=== PATIENT | male | born 1965 | race Caucasian/White ===

== ENCOUNTER 2022-08-28 10:44 | Inpatient (IN) | payer OTHER ==
[2022-08-28] MEDS ORDERED: DICYCLOMINE HCL 10 MG CAPSULE PO PRN (11:53)
[2022-08-28] MEDS ORDERED: BENZOCAINE/MENTHOL (CHLORASEPTIC ) LOZENGE MM PRN (11:53)
[2022-08-28] MEDS ORDERED: IBUPROFEN 400 MG TABLET (FP) PO PRN (11:53)
[2022-08-28] MEDS ORDERED: LORazepam 1 MG TABLET PO PRN (11:53)
[2022-08-28] MEDS ORDERED: LOPERAMIDE HCL 2 MG CAPSULE PO PRN (11:53)
[2022-08-28] MEDS ORDERED: NICOTINE 10 MG CARTRIDGE (INHALER) IH PRN (11:53)
[2022-08-28] MEDS ORDERED: MAG HYDROX/AL HYDROX/SIMETH 30 ML UNIT-DOSE CUP PO PRN (11:53)
[2022-08-28] MEDS ORDERED: ACETAMINOPHEN 325 MG TABLET (FP) PO PRN ×2 (11:53)
[2022-08-28] MEDS ORDERED: NALOXONE HCL (KLOXXADO) 8 MG SPRAY NS PRN (11:53)
[2022-08-28] MEDS ORDERED: BISMUTH SUBSALICYLATE 524 MG/30 ML PO PRN (11:53)
[2022-08-28] MEDS ORDERED: MAGNESIUM HYDROX 2400MG/30ML ORAL SUSPENSION 30 ML CUP PO PRN (11:53)
[2022-08-28] MEDS ORDERED: ONDANSETRON *ODT* 4 MG TABLET SL PRN (11:53)
[2022-08-28] MEDS ORDERED: MAGNESIUM CITRATE 300 ML BOTTLE PO PRN (11:53)
[2022-08-28] MEDS ORDERED: LORazepam 2 MG TABLET PO ONE (12:00)
[2022-08-28] MEDS ORDERED: NICOTINE 14 MG/24 HOURS TOPICAL PATCH TD SCH (12:00)
[2022-08-28] MEDS ORDERED: LORazepam 2 MG TABLET ONE (12:18)
[2022-08-28] MEDS ORDERED: NICOTINE 14 MG/24 HOURS TOPICAL PATCH TD ONE (12:18)
[2022-08-28] MEDS: NICOTINE 14 MG/24 HOURS TOPICAL PATCH TD SCH (12:22)
[2022-08-28] MEDS: hydrOXYzine PAMOATE 25 MG CAPSULE (FP) PO PRN (12:32)
[2022-08-28] MEDS: PRENATAL VITAMINS W/ FOLIC ACID TABLET (FP) PO SCH (12:32)
[2022-08-28] MEDS: METHOCARBAMOL 500 MG TABLET PO PRN (12:33)
[2022-08-28 15:40] LABS: HEMATOCRIT 43.2 % (35.4-49); HEMOGLOBIN 14.3 GM/dL (11.7-16.9); MCH 28.8 pg (25.7-33.7); MCHC 33.1 g/dl (32.0-35.9); MEAN PLT VOLUME 8.5 fl (7.5-11.1); PLATELET COUNT 164 10^3/uL (134-434); RBC 4.97 M/mm3 (4.00-5.60); RDW 13.4 % (11.9-15.9); WHITE BLOOD COUNT 4.5 K/mm3 (4.0-10.0)
[2022-08-28 16:07] LABS: CALCIUM 9.3 mg/dL (8.5-10.1)
[2022-08-28 16:08] LABS: ALBUMIN 3.6 g/dl (3.4-5.0); BLOOD UREA NITROGEN 27.1 mg/dL (7-18)
[2022-08-28 16:10] LABS: CREATININE 1.3 mg/dL (0.55-1.3)
[2022-08-28 16:12] LABS: BILIRUBIN,TOTAL 0.3 mg/dL (0.2-1); TOT PROT 6.8 g/dl (6.4-8.2)
[2022-08-28] MEDS: LORazepam 2 MG TABLET PO SCH ×2 (17:55→22:20)
[2022-08-28] MEDS ORDERED: MELATONIN 5 MG TABLETS PO SCH (22:00)
[2022-08-28] MEDS: THIAMINE HCL 100 MG TABLET (FP) PO SCH (22:20)
[2022-08-28] MEDS: IBUPROFEN 600 MG TABLET (FP) PO PRN (22:22)
[2022-08-29] MEDS: LORazepam 2 MG TABLET PO SCH ×4 (05:36→22:07)
[2022-08-29] MEDS ORDERED: ALBUTEROL SO4 HFA INHALER IH PRN (06:41)
[2022-08-29] MEDS ORDERED: methaDONE HCL 40 MG DISPERSABLE TABLET PO SCH (10:00)
[2022-08-29] MEDS: PRENATAL VITAMINS W/ FOLIC ACID TABLET (FP) PO SCH (10:08)
[2022-08-29] MEDS: NICOTINE 14 MG/24 HOURS TOPICAL PATCH TD SCH (10:10)
[2022-08-29] MEDS ORDERED: MELATONIN 5 MG TABLETS PO SCH (22:00)
[2022-08-29] MEDS: OLANZapine 5 MG TABLET PO SCH (22:06)
[2022-08-29] MEDS: THIAMINE HCL 100 MG TABLET (FP) PO SCH (22:06)
[2022-08-30] MEDS: LORazepam 1 MG TABLET PO SCH ×4 (06:05→22:23)
[2022-08-30] MEDS: methaDONE HCL 40 MG DISPERSABLE TABLET PO SCH ×2 (08:30→10:43)
[2022-08-30] MEDS: PRENATAL VITAMINS W/ FOLIC ACID TABLET (FP) PO SCH (10:18)
[2022-08-30] MEDS: NICOTINE 14 MG/24 HOURS TOPICAL PATCH TD SCH (10:18)
[2022-08-30] MEDS: IBUPROFEN 600 MG TABLET (FP) PO PRN (10:21)
[2022-08-30] MEDS: hydrOXYzine PAMOATE 25 MG CAPSULE (FP) PO PRN (17:44)
[2022-08-30] MEDS: THIAMINE HCL 100 MG TABLET (FP) PO SCH (22:22)
[2022-08-30] MEDS: OLANZapine 5 MG TABLET PO SCH (22:22)
[2022-08-30] MEDS: MELATONIN 5 MG TABLETS PO PRN (22:22)
[2022-08-31] MEDS ORDERED: LORazepam 0.5 MG TABLET PO PRN
[2022-08-31] MEDS: METHOCARBAMOL 500 MG TABLET PO PRN ×2 (05:24→10:44)
[2022-08-31] MEDS: hydrOXYzine PAMOATE 25 MG CAPSULE (FP) PO PRN (05:24)
[2022-08-31] MEDS: LORazepam 0.5 MG TABLET PO SCH ×4 (05:25→22:50)
[2022-08-31] MEDS: methaDONE HCL 40 MG DISPERSABLE TABLET PO SCH (07:35)
[2022-08-31] MEDS: NICOTINE 14 MG/24 HOURS TOPICAL PATCH TD SCH (10:11)
[2022-08-31] MEDS: PRENATAL VITAMINS W/ FOLIC ACID TABLET (FP) PO SCH (10:11)
[2022-08-31] MEDS: IBUPROFEN 600 MG TABLET (FP) PO PRN (17:59)
[2022-08-31] MEDS: OLANZapine 5 MG TABLET PO SCH (22:49)
[2022-08-31] MEDS: THIAMINE HCL 100 MG TABLET (FP) PO SCH (22:49)
[2022-08-31] MEDS: MELATONIN 5 MG TABLETS PO PRN (22:51)
[2022-09-01] MEDS ORDERED: LORazepam 0.5 MG TABLET PO ONE (05:00)
[2022-09-01] MEDS: methaDONE HCL 40 MG DISPERSABLE TABLET PO SCH (05:55)
[2022-09-01] MEDS: IBUPROFEN 600 MG TABLET (FP) PO PRN (06:27)
[2022-09-01 08:48] VITALS: RESP 16
[2022-09-01 09:05] VITALS: BP 130/79; PULSE 75; TEMP 97.5
[2022-09-01] MEDS: PRENATAL VITAMINS W/ FOLIC ACID TABLET (FP) PO SCH (10:25)
[2022-09-01] MEDS: NICOTINE 14 MG/24 HOURS TOPICAL PATCH TD SCH (10:26)
== END 2022-09-01 10:55 | disposition other institution (70) | DRG 773 ==
LOC: YASAS 10:44 → Y6N 11:58
PROVIDERS: ADMIT Allergy & Immunology; ATTEND Surgery
PROC: HZ2ZZZZ Detoxification Services for Substance Abuse Treatment (ICD-10-PCS; principal; 2022-08-28)
DX: F10.230 Alcohol dependence with withdrawal, uncomplicated (principal); F11.20 Opioid dependence, uncomplicated; F14.20 Cocaine dependence, uncomplicated; F13.20 Sedative, hypnotic or anxiolytic dependence, uncomplicated; F17.210 Nicotine dependence, cigarettes, uncomplicated; F19.24 Other psychoactive substance dependence with psychoactive substance-induced mood disorder; F41.9 Anxiety disorder, unspecified; G47.00 Insomnia, unspecified; J45.909 Unspecified asthma, uncomplicated; Z86.19 Personal history of other infectious and parasitic diseases; Z59.00 Homelessness unspecified
CPT/HCPCS: 36415; 80053; 84520; 85027; 86780; C9803-CS; U0003; U0005

== ENCOUNTER 2023-02-20 15:11 | Inpatient (IN) | payer OTHER ==
[2023-02-20 15:41] VITALS: BMI 20.6
[2023-02-20] MEDS ORDERED: POLYETHYLENE GLYCOL (HEALTHYLAX) 3350 17 GM PACKET PO PRN (17:09)
[2023-02-20] MEDS ORDERED: DICYCLOMINE HCL 10 MG CAPSULE PO PRN (17:09)
[2023-02-20] MEDS ORDERED: LOPERAMIDE HCL 2 MG CAPSULE PO PRN (17:09)
[2023-02-20] MEDS ORDERED: BISMUTH SUBSALICYLATE 524 MG/30 ML PO PRN (17:09)
[2023-02-20] MEDS ORDERED: guaiFENesin 600 MG TABLET.ER (FP) PO PRN (17:09)
[2023-02-20] MEDS ORDERED: P-EPHED 60MG/TRIPROLIDI 2.5MG TABLET PO PRN (17:09)
[2023-02-20] MEDS ORDERED: NALOXONE HCL 0.4 MG/ML VIAL IM PRN (17:09)
[2023-02-20] MEDS ORDERED: MAGNESIUM HYDROX 2400MG/30ML ORAL SUSPENSION 30 ML CUP PO PRN (17:09)
[2023-02-20] MEDS ORDERED: BENZONATATE 200 MG CAPSULE PO PRN (17:09)
[2023-02-20] MEDS ORDERED: MAG HYDROX/AL HYDROX/SIMETH 30 ML UNIT-DOSE CUP PO PRN (17:09)
[2023-02-20] MEDS ORDERED: NALOXONE HCL (KLOXXADO) 8 MG SPRAY NS PRN (17:09)
[2023-02-20] MEDS ORDERED: ONDANSETRON *ODT* 4 MG TABLET SL PRN (17:09)
[2023-02-20] MEDS ORDERED: NICOTINE POLACRILEX 2 MG GUM BUC PRN (17:09)
[2023-02-20] MEDS ORDERED: BENZOCAINE/MENTHOL (CHLORASEPTIC ) LOZENGE MM PRN (17:09)
[2023-02-20] MEDS ORDERED: NICOTINE 7 MG/24 HOURS TOPICAL PATCH TD PRN (17:09)
[2023-02-20] MEDS: MELATONIN 5 MG TABLETS PO PRN (22:19)
[2023-02-20] MEDS: THIAMINE HCL 100 MG TABLET (FP) PO SCH (22:19)
[2023-02-21] MEDS ORDERED: methaDONE HCL 10 MG TABLET PO SCH (09:00)
[2023-02-21] MEDS ORDERED: diazePAM 5 MG TABLET PO PRN (09:21)
[2023-02-21] MEDS: PRENATAL VITAMINS W/ FOLIC ACID TABLET (FP) PO SCH (09:51)
[2023-02-21] MEDS: diazePAM 5 MG TABLET PO SCH ×3 (10:03→22:09)
[2023-02-21 10:41] LABS: HEMATOCRIT 40.1 % (35.4-49); HEMOGLOBIN 13.8 GM/dL (11.7-16.9); MCH 29.9 pg (25.7-33.7); MCHC 34.3 g/dl (32.0-35.9); MEAN CELL VOLUME 87.1 fl (80-96); MEAN PLT VOLUME 8.9 fl (7.5-11.1); PLATELET COUNT 203 10^3/uL (134-434); RDW 13.6 % (11.9-15.9)
[2023-02-21 10:49] LABS: POTASSIUM 3.9 mmol/L (3.5-5.1)
[2023-02-21 10:53] LABS: ALBUMIN 3.5 g/dl (3.4-5.0); BLOOD UREA NITROGEN 18.9 mg/dL (7-18)
[2023-02-21 10:55] LABS: CREATININE 0.8 mg/dL (0.55-1.3)
[2023-02-21 10:56] LABS: BILIRUBIN,TOTAL 0.7 mg/dL (0.2-1); TOT PROT 6.3 g/dl (6.4-8.2)
[2023-02-21] MEDS: IBUPROFEN 400 MG TABLET (FP) PO PRN (16:55)
[2023-02-21] MEDS: THIAMINE HCL 100 MG TABLET (FP) PO SCH (22:08)
[2023-02-21] MEDS: MELATONIN 5 MG TABLETS PO PRN (22:09)
[2023-02-22] MEDS: diazePAM 5 MG TABLET PO SCH ×4 (05:19→22:32)
[2023-02-22] MEDS: IBUPROFEN 400 MG TABLET (FP) PO PRN (07:11)
[2023-02-22] MEDS: PRENATAL VITAMINS W/ FOLIC ACID TABLET (FP) PO SCH (10:05)
[2023-02-22] MEDS: THIAMINE HCL 100 MG TABLET (FP) PO SCH (22:32)
[2023-02-22] MEDS: MELATONIN 5 MG TABLETS PO PRN (22:33)
[2023-02-23] MEDS: diazePAM 5 MG TABLET PO SCH ×3 (05:09→22:10)
[2023-02-23] MEDS: PRENATAL VITAMINS W/ FOLIC ACID TABLET (FP) PO SCH (10:08)
[2023-02-23] MEDS: IBUPROFEN 600 MG TABLET (FP) PO PRN (13:47)
[2023-02-23] MEDS: MELATONIN 5 MG TABLETS PO PRN (22:10)
[2023-02-23] MEDS: THIAMINE HCL 100 MG TABLET (FP) PO SCH (22:10)
[2023-02-24] MEDS: diazePAM 5 MG TABLET PO SCH ×2 (05:02→17:32)
[2023-02-24] MEDS: IBUPROFEN 600 MG TABLET (FP) PO PRN ×2 (06:15→22:13)
[2023-02-24] MEDS: PRENATAL VITAMINS W/ FOLIC ACID TABLET (FP) PO SCH (10:02)
[2023-02-24] MEDS: MELATONIN 5 MG TABLETS PO PRN (22:12)
[2023-02-24] MEDS: THIAMINE HCL 100 MG TABLET (FP) PO SCH (22:12)
[2023-02-25] MEDS ORDERED: diazePAM 5 MG TABLET PO ONE (06:00)
[2023-02-25] MEDS: IBUPROFEN 600 MG TABLET (FP) PO PRN (08:53)
[2023-02-25 09:17] VITALS: BP 122/79; PULSE 65; RESP 18; TEMP 973
[2023-02-25] MEDS: PRENATAL VITAMINS W/ FOLIC ACID TABLET (FP) PO SCH (10:09)
== END 2023-02-25 11:45 | disposition home or self-care (01) | DRG 773 ==
LOC: YASAS 15:11 → Y6N 18:22
PROVIDERS: ADMIT Allergy & Immunology; ATTEND Surgery
PROC: HZ2ZZZZ Detoxification Services for Substance Abuse Treatment (ICD-10-PCS; principal; 2023-02-20)
DX: F10.230 Alcohol dependence with withdrawal, uncomplicated (principal); F11.20 Opioid dependence, uncomplicated; F13.20 Sedative, hypnotic or anxiolytic dependence, uncomplicated; F14.20 Cocaine dependence, uncomplicated; F17.210 Nicotine dependence, cigarettes, uncomplicated; J45.909 Unspecified asthma, uncomplicated; M54.50 Low back pain, unspecified; G89.29 Other chronic pain; R26.89 Other abnormalities of gait and mobility; Z86.19 Personal history of other infectious and parasitic diseases
CPT/HCPCS: 36415; 80053; 85027; 86780; 87811; 93005; 93010; C9803-CS; U0003; U0005

== ENCOUNTER 2023-07-03 16:44 | Inpatient (IN) | payer OTHER ==
[2023-07-03 17:18] VITALS: BMI 19.3
[2023-07-03] MEDS ORDERED: P-EPHED 60MG/TRIPROLIDI 2.5MG TABLET PO PRN (21:29)
[2023-07-03] MEDS ORDERED: DICYCLOMINE HCL 10 MG CAPSULE PO PRN (21:29)
[2023-07-03] MEDS ORDERED: NALOXONE HCL (KLOXXADO) 8 MG SPRAY NS PRN (21:29)
[2023-07-03] MEDS ORDERED: BISMUTH SUBSALICYLATE 524 MG/30 ML PO PRN (21:29)
[2023-07-03] MEDS ORDERED: POLYETHYLENE GLYCOL (HEALTHYLAX) 3350 17 GM PACKET PO PRN (21:29)
[2023-07-03] MEDS ORDERED: BENZOCAINE/MENTHOL (CHLORASEPTIC ) LOZENGE MM PRN (21:29)
[2023-07-03] MEDS ORDERED: ONDANSETRON *ODT* 4 MG TABLET SL PRN (21:29)
[2023-07-03] MEDS ORDERED: IBUPROFEN 400 MG TABLET (FP) PO PRN (21:29)
[2023-07-03] MEDS ORDERED: MAG HYDROX/AL HYDROX/SIMETH 30 ML UNIT-DOSE CUP PO PRN (21:29)
[2023-07-03] MEDS ORDERED: guaiFENesin 600 MG TABLET.ER (FP) PO PRN (21:29)
[2023-07-03] MEDS ORDERED: NALOXONE HCL 0.4 MG/ML VIAL IM PRN (21:29)
[2023-07-03] MEDS ORDERED: ACETAMINOPHEN 325 MG TABLET (FP) PO PRN (21:29)
[2023-07-03] MEDS ORDERED: BENZONATATE 200 MG CAPSULE PO PRN (21:29)
[2023-07-03] MEDS ORDERED: MAGNESIUM HYDROX 2400MG/30ML ORAL SUSPENSION 30 ML CUP PO PRN (21:29)
[2023-07-03] MEDS: IBUPROFEN 600 MG TABLET (FP) PO PRN (22:29)
[2023-07-03] MEDS: THIAMINE HCL 100 MG TABLET (FP) PO SCH (22:30)
[2023-07-03] MEDS: MELATONIN 5 MG TABLETS PO SCH (22:30)
[2023-07-04] MEDS: methaDONE HCL 40 MG DISPERSABLE TABLET PO SCH (07:00)
[2023-07-04] MEDS: METHOCARBAMOL 500 MG TABLET PO PRN ×2 (10:06→22:10)
[2023-07-04] MEDS: PRENATAL VITAMINS W/ FOLIC ACID TABLET (FP) PO SCH (10:06)
[2023-07-04 10:41] LABS: HEMOGLOBIN 13.4 GM/dL (11.7-16.9); MCH 29.1 pg (25.7-33.7); MCHC 33.5 g/dl (32.0-35.9); MEAN CELL VOLUME 86.9 fl (80-96); MEAN PLT VOLUME 8.6 fl (7.5-11.1); PLATELET COUNT 159 10^3/uL (134-434); RBC 4.61 M/mm3 (4.00-5.60); RDW 13.9 % (11.9-15.9); WHITE BLOOD COUNT 5.1 K/mm3 (4.0-10.0)
[2023-07-04 10:51] LABS: POTASSIUM 4.3 mmol/L (3.5-5.1)
[2023-07-04 10:59] LABS: CALCIUM 8.5 mg/dL (8.5-10.1)
[2023-07-04 11:00] LABS: ALBUMIN 3.2 g/dl (3.4-5.0); BLOOD UREA NITROGEN 23.4 mg/dL (7-18)
[2023-07-04 11:02] LABS: TOT PROT 5.7 g/dl (6.4-8.2)
[2023-07-04 11:03] LABS: CREATININE 0.8 mg/dL (0.55-1.3)
[2023-07-04 11:05] LABS: BILIRUBIN,TOTAL 0.2 mg/dL (0.2-1)
[2023-07-04 11:46] LABS: HIV INTERPRETATION NEGATIVE (NEGATIVE)
[2023-07-04] MEDS: MELATONIN 5 MG TABLETS PO SCH (22:10)
[2023-07-04] MEDS: THIAMINE HCL 100 MG TABLET (FP) PO SCH (22:11)
[2023-07-05] MEDS: methaDONE HCL 40 MG DISPERSABLE TABLET PO SCH (05:15)
[2023-07-05] MEDS: METHOCARBAMOL 500 MG TABLET PO PRN ×2 (05:17→22:10)
[2023-07-05] MEDS: LOPERAMIDE HCL 2 MG CAPSULE PO PRN (10:25)
[2023-07-05] MEDS: PRENATAL VITAMINS W/ FOLIC ACID TABLET (FP) PO SCH (10:25)
[2023-07-05] MEDS: IBUPROFEN 600 MG TABLET (FP) PO PRN (15:51)
[2023-07-05] MEDS: THIAMINE HCL 100 MG TABLET (FP) PO SCH (22:10)
[2023-07-05] MEDS: MELATONIN 5 MG TABLETS PO SCH (22:10)
[2023-07-06] MEDS: METHOCARBAMOL 500 MG TABLET PO PRN (05:30)
[2023-07-06] MEDS: methaDONE HCL 40 MG DISPERSABLE TABLET PO SCH (05:30)
[2023-07-06] MEDS: IBUPROFEN 600 MG TABLET (FP) PO PRN (05:33)
[2023-07-06 06:42] VITALS: TEMP 97.7
[2023-07-06 09:39] VITALS: BP 107/70; PULSE 60; RESP 16
[2023-07-06] MEDS: LOPERAMIDE HCL 2 MG CAPSULE PO PRN (09:41)
[2023-07-06] MEDS: PRENATAL VITAMINS W/ FOLIC ACID TABLET (FP) PO SCH (11:14)
[2023-07-06 21:47] LABS: SYPHILIS W/ RPR CONF NON-REACTIVE (NONREACTIVE)
== END 2023-07-06 09:50 | disposition other institution (70) | DRG 773 ==
LOC: YASAS 16:44 → Y6N 22:03
PROVIDERS: ADMIT Allergy & Immunology; ATTEND Surgery
PROC: HZ2ZZZZ Detoxification Services for Substance Abuse Treatment (ICD-10-PCS; principal; 2023-07-03)
DX: F13.20 Sedative, hypnotic or anxiolytic dependence, uncomplicated (principal); F11.20 Opioid dependence, uncomplicated; F10.20 Alcohol dependence, uncomplicated; F14.20 Cocaine dependence, uncomplicated
CPT/HCPCS: 36415; 80053; 85027; 86780; 87389; 87635; 87811